=== PATIENT | female | born 1950 | race Caucasian/White ===

== ENCOUNTER → 2016-10-13 | Outpatient (REF) | payer OTHER ==
[~2016-10-13] MED LIST: ASPI1TAB PO; CALC600T57 PO; CVS20TAB PO; LISI-542 PO; METF1000 PO; PROBCAP4 PO; TYLE1TAB5 PO; ZOCO20TA PO
== END ==
LOC: M LAB REF 18:01
PROVIDERS: ATTEND Physician Assistant Medical
DX: B34.9 Viral infection, unspecified (principal)

== ENCOUNTER → 2016-10-20 | Outpatient (REF) | payer OTHER ==
[2016-10-20 12:13] LABS: VITAMIN B12 LEVEL 1528 PG/ML
[2016-10-20 12:14] LABS: FOLATE 19.2 NG/ML
[2016-10-20 12:17] LABS: ALBUMIN 3.8 GM/DL (3.2-5.2); ALBUMIN/GLOBULIN RATIO 1.27 (1.00-1.93); ALKALINE PHOSPHATASE 87 U/L (45-117); ALT/SGPT 17 U/L (12-78); ANION GAP 8 MEQ/L (8-16); AST/SGOT 15 U/L (15-37); BILIRUBIN,TOTAL 0.4 MG/DL (0.2-1.0); BLOOD UREA NITROGEN 20 MG/DL (7-18); CALCIUM LEVEL 9.3 MG/DL (8.8-10.2); CARBON DIOXIDE LEVEL 26 MEQ/L (21-32); CHLORIDE LEVEL 105 MEQ/L (98-107); CREATININE FOR GFR 0.93 MG/DL (0.55-1.02); GLOMERULAR FILTRATION RATE > 60.0 (>45); GLUCOSE, FASTING 165 MG/DL (80-110); POTASSIUM SERUM 4.2 MEQ/L (3.5-5.1); SODIUM LEVEL 139 MEQ/L (136-145); TOTAL PROTEIN 6.8 GM/DL (6.4-8.2)
== END ==
LOC: M LABDRAW1 11:05
PROVIDERS: ATTEND Physician Assistant
DX: I10 Essential (primary) hypertension (principal); E53.8 Deficiency of other specified B group vitamins; E11.9 Type 2 diabetes mellitus without complications

== ENCOUNTER 2017-02-25 11:46 | Emergency (ER) | payer OTHER ==
[~2017-02-25] VITALS: Ht 162.6 cm; Wt 87.0 kg
[~2017-02-25 11:46] MED LIST changes: -METF1000 PO; +METF10004 PO
[2017-02-25] MEDS ORDERED: JANU100T PO (12:11)
[2017-02-25] MEDS ORDERED: ONDANSETRON 4MG/2ML VIAL (J2405) IV ONE (13:45)
[2017-02-25] MEDS ORDERED: NS 500 ML IV ONE (13:45)
[2017-02-25] MEDS ORDERED: MORPHINE 4 MG/ML 1ML SYRINGE IV ONE (13:45)
--- NOTE | 2017-02-25 14:20 | REP ---
Clinical: Right upper quadrant pain with nausea. Technique: Real time celis scale ultrasound examination using curved array transducer. Findings: The gallbladder is distended and demonstrates layering sludge as well as 8 mm gallstone at the neck of the gallbladder. No significant wall thickening or pericholecystic fluid is appreciated. Diffuse abdominal pain is noted with transducer pressure. Biliary ductal dilatation is appreciated and the common bile duct measuring 11 mm diameter. Liver and pancreas are normal in contour, size, echogenicity without focal hepatic or pancreatic lesion identified. The right kidney is normal in reniform shape without hydronephrosis and measures 9.2 x 5.7 x 4.6 cm. No ascites. Impression: Distended gallbladder with layering sludge and 8 mm stone at the neck along with CBD dilatation to 11 mm and diffuse abdominal pain. Findings are equivocal and include early acute cholecystitis and biliary colic. Signed by Ismael Bradley MD 02/25/2017 02:12 P
[2017-02-25 14:47] LABS: BASO # 0.1 K/mm3 (0.0-0.2); BASO % 0.7 % (0.0-1.0); EOS # 0.2 K/mm3 (0.0-0.50); EOS % 1.6 % (0.0-3.0); LARGE UNSTAINED CELL # 0.2 K/mm3 (0.0-0.4); LARGE UNSTAINED CELL % 1.5 % (0.0-4.0); LYMPH # 1.9 K/mm3 (1.5-4.5); LYMPH % 17.2 % (24.0-44.0); MEAN CORPUSCULAR HEMOGLOBIN 29.8 pg (27.0-33.0); MEAN CORPUSCULAR HGB CONC 32.8 g/dl (32.0-36.5); MONO # 0.5 K/mm3 (0.0-0.8); MONO % 4.2 % (0.0-5.0); NEUTROPHILS # 8.3 K/mm3 (1.8-7.7); NEUTROPHILS % 74.7 % (36.0-66.0); PLATELET COUNT, AUTOMATED 387 k/mm3 (150-450); RED CELL DISTRIBUTION WIDTH 12.3 % (11.5-14.5); WHITE BLOOD COUNT 11.1 K/mm3 (4.0-10.0)
[2017-02-25 14:48] LABS: ALBUMIN 3.7 GM/DL (3.2-5.2); ALBUMIN/GLOBULIN RATIO 0.84 (1.00-1.93); ALKALINE PHOSPHATASE 85 U/L (45-117); ALT/SGPT 35 U/L (12-78); AMYLASE 23 U/L (25-115); ANION GAP 7 MEQ/L (8-16); AST/SGOT 66 U/L (15-37); BILIRUBIN,DIRECT 0.3 MG/DL (0.0-0.2); BILIRUBIN,TOTAL 0.6 MG/DL (0.2-1.0); BLOOD UREA NITROGEN 20 MG/DL (7-18); CARBON DIOXIDE LEVEL 28 MEQ/L (21-32); CHLORIDE LEVEL 102 MEQ/L (98-107); CREATININE FOR GFR 0.98 MG/DL (0.55-1.02); GLOMERULAR FILTRATION RATE > 60.0 (>45); GLUCOSE, FASTING 164 MG/DL (80-110); POTASSIUM SERUM 4.3 MEQ/L (3.5-5.1); SODIUM LEVEL 137 MEQ/L (136-145); TOTAL PROTEIN 8.1 GM/DL (6.4-8.2)
[2017-02-25] MEDS ORDERED: ZOFR4TAB3 PO (16:09)
[2017-02-25] MEDS ORDERED: NORCOTAB PO ×2 (16:09→17:11)
[2017-02-25 16:22] VITALS: BP 143/60
[2017-04-19] MEDS ORDERED: D3 22000 PO (08:07)
[2017-04-19] MEDS ORDERED: LISI10TA4 PO (08:07)
[2017-04-19] MEDS ORDERED: FISH100049 PO (08:07)
== END 2017-02-25 16:29 | disposition home or self-care (01) ==
LOC: M ED 11:46
DX: K80.70 Calculus of gallbladder and bile duct without cholecystitis without obstruction (principal); R11.2 Nausea with vomiting, unspecified; R10.11 Right upper quadrant pain; E11.9 Type 2 diabetes mellitus without complications; I10 Essential (primary) hypertension; M31.4 Aortic arch syndrome [Takayasu]; Z90.79 Acquired absence of other genital organ(s); Z79.82 Long term (current) use of aspirin
CPT/HCPCS: 76705; 80048; 80076; 82150; 83690; 85025; 86140; 96361; 96374; 96375; 99283; J2405

== ENCOUNTER 2017-04-27 11:39 | Day surgery (SDC) | payer OTHER ==
[~2017-04-27] VITALS: Ht 162.6 cm; Wt 78.9 kg
[~2017-04-27 11:39] MED LIST changes: +D3 22000 PO; +FISH100049 PO; +JANU100T PO; +LISI10TA4 PO; +NORCOTAB PO; +ZOFR4TAB3 PO
[2017-04-27] MEDS ORDERED: LIDOCAINE 1% SDV 5 ML VIAL SC ONE (11:45)
[2017-04-27] MEDS ORDERED: LR 1,000 ML IV SCH ×3 (11:45→16:45)
[2017-04-27] MEDS ORDERED: LIDOCAINE 2% INJ 100 MG/5 ML SDV (FOR ANES.) As Ordered ONE (12:54)
[2017-04-27] MEDS ORDERED: dexameTHASONE 4 MG/ML 1ML VIAL (J1100) As Ordered ONE (12:54)
[2017-04-27] MEDS ORDERED: KETOROLAC 60 MG/2 ML VIAL (J1885) As Ordered ONE (12:54)
[2017-04-27] MEDS ORDERED: ROCURONIUM BROMIDE 50 MG/5 ML VIAL/SYRINGE As Ordered ONE ×2 (12:54→12:56)
[2017-04-27] MEDS ORDERED: ONDANSETRON 4MG/2ML VIAL (J2405) As Ordered ONE (12:54)
[2017-04-27] MEDS ORDERED: PROPOFOL 200 MG/20 ML VIAL As Ordered ONE (12:54)
[2017-04-27] MEDS ORDERED: MIDAZOLAM INJ 2 MG/2 ML VIAL (J2250) As Ordered ONE (12:55)
[2017-04-27] MEDS ORDERED: fentaNYL 100 MCG/2 ML INJECTION (J3010) As Ordered ONE (12:55)
[2017-04-27] MEDS ORDERED: BUPIVACAINE HCL 0.25% 30 ML VIAL As Ordered ONE ×2 (13:17→14:15)
[2017-04-27] MEDS ORDERED: GLYCOPYRROLATE INJ 0.2 MG/ML 2 ML VIAL As Ordered ONE (15:22)
[2017-04-27] MEDS ORDERED: NEOSTIGMINE 1MG/ML 5 ML SYRINGE (J2710) As Ordered ONE (15:22)
[2017-04-27] MEDS ORDERED: HYDROmorphone HCL 2 MG/ML 1ML VIAL (J1170) As Ordered ONE (15:55)
[2017-04-27] MEDS ORDERED: ACETAMINOPHEN TAB 650MG DOSE (2X325MG) PO PRN (16:45)
[2017-04-27] MEDS ORDERED: NORCO, ANEXSIA 5/325MG TABLET (HYDROcodone/ACETAMINOPHEN) PO PRN (16:45)
[2017-04-27] MEDS ORDERED: fentaNYL 100 MCG/2 ML INJECTION (J3010) IV PRN (16:45)
[2017-04-27] MEDS ORDERED: PERCOCET 5MG/325MG TAB PO PRN (16:45)
[2017-04-27] MEDS ORDERED: METOCLOPRAMIDE INJ 10MG/2ML VIAL (J2765) IV PRN (16:45)
[2017-04-27] MEDS ORDERED: ONDANSETRON 4MG/2ML VIAL (J2405) IV PRN (16:45)
[2017-04-27 19:00] VITALS: BP 106/50
--- NOTE | 2017-04-27 21:22 | ECGEPIP ---
Stationary ECG Study [facility] Test Date: 2017-04-27 Pat Name: MALCOLM HARRISON Department: Room: - Gender: F Conservation Worker: : 1950 Requested By: Fernando Meyer Order Number: [id number] Reading MD: Octavio March Measurements Intervals [place] Rate: 61 P: 33 NH: 150 QRS: -20 QRSD: 90 T: 18 QT: 404 QTc: 407 Interpretive Statements Normal sinus rhythm Low QRS complex voltage in the precordial leads Comparison tracing not on file Electronically Signed On 04-27-2017 21:22:23 EDT by Octavio March
--- NOTE | 2017-04-28 17:58 | RO ---
DATE OF PROCEDURE: 04/27/2017 PREOPERATIVE DIAGNOSIS: Symptomatic gallstones. POSTOPERATIVE DIAGNOSIS: Symptomatic gallstones and intra-abdominal adhesions. PROCEDURE PERFORMED: Laparoscopic cholecystectomy with lysis of adhesions. SURGEON: Dr. Herrera ANESTHESIA: General. INDICATIONS FOR PROCEDURE: The patient is a 66-year-old woman with a history of upper abdominal discomfort. Gallbladder ultrasound confirmed cholelithiasis and she is now for a laparoscopic cholecystectomy. OPERATIVE PROCEDURE: The patient was placed under general endotracheal anesthesia. The patient's abdomen was prepped and draped in a sterile fashion. 0.25% Marcaine was infiltrated at each of the trocar sites. A short supraumbilical midline incision was made and deepened through the fascia under direct vision. The peritoneum was opened bluntly and a Gomez cannula was inserted. The abdomen was insufflated with carbon dioxide gas and a laparoscopic was placed. Initial examination showed some significant adhesions along the right side of the abdomen with the ascending colon in the area of the hepatic flexure having adhesions up to the anterior abdominal wall. Some of the omentum was also adherent in this area. It was possible to see the medial aspect of the gallbladder and the gallbladder was found to be distended with some adhesions also to the fundus and body of the gallbladder. The liver itself appeared normal. There were no other significant abnormalities identified. A 5 mm trocar was placed in the left upper quadrant and then using cauterizing asia, the adhesions in the area anterior and just inferior to the level of the gallbladder were divided to create an area for placement of additional trocars. Once this area had been adequately cleared, two 5 mm trocars were placed in the right upper quadrant. The patient was tilted to a reverse Trendelenburg position and rolled to the left. Initially the gallbladder was aspirated with an aspirating needle. Approximately 150 mL of bile was aspirated and the gallbladder was not completely emptied. The gallbladder was then grasped and elevated. Adhesions of the omentum to the gallbladder were lysed using the hook cautery. Dissection was carried down to the gallbladder neck. The neck was dissected medially and laterally. The cholecystic artery was identified and dissected free and this was doubly clipped with hemoclips and divided. With further dissection the cystic duct was clearly identified and this was also doubly clipped with hemoclips and divided. The gallbladder was then dissected free from the gallbladder bed using cautery. The gallbladder was not perforated in the course of dissection. The gallbladder was placed in an Endopouch. The right upper quadrant was irrigated and inspected. There was no evidence of bleeding or bile leak. The patient was returned to a flat position. The abdomen was deflated and the trocars were removed. The gallbladder was recovered through the Gomez site. Several small stones were palpable within the gallbladder. This was sent for permanent pathology. The fascia at the Gomez site was closed with interrupted simple sutures of 2-0 Vicryl. The skin incisions were all closed with buried 5-0 Vicryl and Steri-Strips. Light dressings were applied. The patient tolerated the procedure well without apparent complication. She was awakened in the operating room, extubated and moved to the recovery room in stable condition. RONEN
== END 2017-04-27 19:06 | disposition home or self-care (01) ==
LOC: M SDC 11:39
PROVIDERS: ATTEND Surgery
DX: K80.10 Calculus of gallbladder with chronic cholecystitis without obstruction (principal); K66.0 Peritoneal adhesions (postprocedural) (postinfection); E78.00 Pure hypercholesterolemia, unspecified; I10 Essential (primary) hypertension; E11.9 Type 2 diabetes mellitus without complications; M31.4 Aortic arch syndrome [Takayasu]; M17.0 Bilateral primary osteoarthritis of knee; M19.049 Primary osteoarthritis, unspecified hand; J30.2 Other seasonal allergic rhinitis; Z87.891 Personal history of nicotine dependence; Z88.5 Allergy status to narcotic agent; Z91.041 Radiographic dye allergy status; Z88.8 Allergy status to other drugs, medicaments and biological substances; Z79.899 Other long term (current) drug therapy; Z79.82 Long term (current) use of aspirin; Z79.84 Long term (current) use of oral hypoglycemic drugs
CPT/HCPCS: 47562; 88304; 93005; J1170; J2250; J2405; J2710; J3010

== ENCOUNTER → 2017-05-04 | Outpatient (REF) | payer OTHER ==
[2017-05-04 12:47] LABS: MEAN CORPUSCULAR HEMOGLOBIN 29.3 pg (27.0-33.0); MEAN CORPUSCULAR HGB CONC 32.8 g/dl (32.0-36.5); MEAN CORPUSCULAR VOLUME 89.1 fl (80.0-96.0); RED CELL DISTRIBUTION WIDTH 12.8 % (11.5-14.5); WHITE BLOOD COUNT 6.1 K/mm3 (4.0-10.0)
[2017-05-04 12:48] LABS: ALBUMIN 3.5 GM/DL (3.2-5.2); ALKALINE PHOSPHATASE 68 U/L (45-117); ALT/SGPT 19 U/L (12-78); ANION GAP 8 MEQ/L (8-16); AST/SGOT 12 U/L (15-37); BILIRUBIN,TOTAL 0.4 MG/DL (0.2-1.0); BLOOD UREA NITROGEN 20 MG/DL (7-18); CALCIUM LEVEL 9.8 MG/DL (8.8-10.2); CARBON DIOXIDE LEVEL 32 MEQ/L (21-32); CHLORIDE LEVEL 101 MEQ/L (98-107); CREATININE FOR GFR 0.88 MG/DL (0.55-1.02); GLOMERULAR FILTRATION RATE > 60.0 (>45); GLUCOSE, FASTING 115 MG/DL (80-110); POTASSIUM SERUM 4.3 MEQ/L (3.5-5.1); SODIUM LEVEL 141 MEQ/L (136-145)
== END ==
LOC: M LABDRAW1 11:38
PROVIDERS: ATTEND Physician Assistant
DX: E11.9 Type 2 diabetes mellitus without complications (principal); I10 Essential (primary) hypertension

== ENCOUNTER → 2017-11-02 | Outpatient (REF) | payer OTHER ==
[2017-11-02 12:40] LABS: HEMATOCRIT 41.3 % (36.0-47.0); HEMOGLOBIN 12.8 g/dl (12.0-16.0); MEAN CORPUSCULAR HEMOGLOBIN 27.6 pg (27.0-33.0); MEAN CORPUSCULAR VOLUME 89.2 fl (80.0-96.0); PLATELET COUNT, AUTOMATED 443 10^3/uL (150-450); RED BLOOD COUNT 4.63 10^6/uL (4.00-5.40); RED CELL DISTRIBUTION WIDTH 13.2 % (11.5-14.5); WHITE BLOOD COUNT 8.4 10^3/uL (4.0-10.0)
[2017-11-02 13:07] LABS: ALBUMIN 3.7 GM/DL (3.2-5.2); ALBUMIN/GLOBULIN RATIO 1.03 (1.00-1.93); ALKALINE PHOSPHATASE 80 U/L (45-117); ALT/SGPT 16 U/L (12-78); ANION GAP 7 MEQ/L (8-16); AST/SGOT 12 U/L (7-37); BILIRUBIN,TOTAL 0.3 MG/DL (0.2-1.0); BLOOD UREA NITROGEN 17 MG/DL (7-18); CALCIUM LEVEL 9.3 MG/DL (8.8-10.2); CARBON DIOXIDE LEVEL 30 MEQ/L (21-32); CHLORIDE LEVEL 104 MEQ/L (98-107); CREATININE FOR GFR 0.86 MG/DL (0.55-1.30); FREE T4 0.87 NG/DL (0.76-1.46); GLOMERULAR FILTRATION RATE > 60.0 (>45); GLUCOSE, FASTING 118 MG/DL (70-100); SODIUM LEVEL 141 MEQ/L (136-145); TOTAL PROTEIN 7.3 GM/DL (6.4-8.2)
[2017-11-02 13:10] LABS: POTASSIUM SERUM 5.2 MEQ/L (3.5-5.1)
[2017-11-02 13:24] LABS: FOLATE 9.5 NG/ML; VITAMIN B12 LEVEL 290 PG/ML
[2017-11-02 13:28] LABS: CREATININE, URINE 77.3 MG/DL; MAU/CREAT RATIO 7.7 MCG/MG (0.0-30.0)
[2017-11-02 13:46] LABS: ESTIMATED AVERAGE GLUCOSE 157 MG/DL (60-110); HEMOGLOBIN A1c 7.1 %
== END ==
LOC: M SFHCADAM 09:04
DX: E11.9 Type 2 diabetes mellitus without complications (principal); I70.1 Atherosclerosis of renal artery; E53.8 Deficiency of other specified B group vitamins

== ENCOUNTER → 2018-05-07 | Outpatient (REF) | payer MEDICARE, OTHER ==
[2018-05-07 15:13] LABS: MALB URINE SIEMENS 12.9 MG/L; MAU/CREAT RATIO 5.6 MCG/MG (0.0-30.0)
[2018-05-07 15:36] LABS: ALBUMIN 3.6 GM/DL (3.2-5.2); ALBUMIN/GLOBULIN RATIO 1.16 (1.00-1.93); ALKALINE PHOSPHATASE 68 U/L (45-117); ALT/SGPT 19 U/L (12-78); ANION GAP 11 MEQ/L (8-16); AST/SGOT 16 U/L (7-37); BILIRUBIN,TOTAL 0.3 MG/DL (0.2-1.0); BLOOD UREA NITROGEN 28 MG/DL (7-18); CALCIUM LEVEL 9.1 MG/DL (8.8-10.2); CARBON DIOXIDE LEVEL 27 MEQ/L (21-32); CHLORIDE LEVEL 106 MEQ/L (98-107); CHOLESTEROL LEVEL 137 MG/DL (<200); CREATININE FOR GFR 0.98 MG/DL (0.55-1.30); GLOMERULAR FILTRATION RATE > 60.0 (>45); GLUCOSE, FASTING 122 MG/DL (70-100); HDL CHOLESTEROL 55 MG/DL (>40); LDL CHOLESTEROL 52 MG/DL (<100); NON-HDL-C 82 MG/DL; POTASSIUM SERUM 4.5 MEQ/L (3.5-5.1); SODIUM LEVEL 144 MEQ/L (136-145); TOTAL 25(OH) VITAMIN D 61.3 NG/ML (30.0-100.0); TOTAL PROTEIN 6.7 GM/DL (6.4-8.2); TRIGLYCERIDES LEVEL 151 MG/DL (<150)
[2018-05-07 16:04] LABS: ESTIMATED AVERAGE GLUCOSE 146 MG/DL (60-110); HEMOGLOBIN A1c 6.7 %
== END ==
LOC: M LABDRAW1 07:48
DX: E11.9 Type 2 diabetes mellitus without complications (principal); I70.1 Atherosclerosis of renal artery; E55.9 Vitamin D deficiency, unspecified
CPT/HCPCS: 80053

== ENCOUNTER → 2018-06-15 | Outpatient (REF) | payer MEDICARE, OTHER | LOC: M LAB REF 13:37 | DX: R19.7 Diarrhea, unspecified (principal) | CPT/HCPCS: 87177 ==

== ENCOUNTER 2018-06-28 06:25 | Day surgery (SDC) | payer MEDICARE, OTHER ==
[2018-06-28] MEDS: NS 1,000 ML IV (07:05)
[2018-06-28] MEDS ORDERED: PROPOFOL 200 MG/20 ML VIAL As Ordered ×2 (07:10→07:48)
[2018-06-28] MEDS ORDERED: LIDOCAINE 2% INJ 100 MG/5 ML SDV (FOR ANES.) As Ordered (07:12)
== END 2018-06-28 08:58 | disposition home or self-care (01) ==
LOC: M OPP 06:25
DX: K57.30 Diverticulosis of large intestine without perforation or abscess without bleeding (principal); K64.9 Unspecified hemorrhoids; I10 Essential (primary) hypertension; E78.5 Hyperlipidemia, unspecified; E11.9 Type 2 diabetes mellitus without complications; M12.9 Arthropathy, unspecified; Z88.5 Allergy status to narcotic agent; Z88.8 Allergy status to other drugs, medicaments and biological substances; Z79.82 Long term (current) use of aspirin; Z79.84 Long term (current) use of oral hypoglycemic drugs; Z79.899 Other long term (current) drug therapy
CPT/HCPCS: 45380

== ENCOUNTER → 2018-07-11 | Outpatient (CLI) | payer MEDICARE, OTHER | LOC: M RAD 10:37 | DX: I70.213 Atherosclerosis of native arteries of extremities with intermittent claudication, bilateral legs (principal) | CPT/HCPCS: 93925 ==

== ENCOUNTER → 2019-04-08 | Outpatient (REF) | payer MEDICARE, OTHER ==
[~2019-04-08] MED LIST changes: -ASPI1TAB PO; +ASPI81TA26 PO; -CVS20TAB PO; +HYDR-3715 PO; +MELA5TAB21 PO; -NORCOTAB PO; +OMEP20TA9 PO; +VITA100018 PO; +VITA250L PO; +VITAE20CA PO; +ZOFR4TAB14 PO; -ZOFR4TAB3 PO
[2019-04-08 14:33] LABS: HEMATOCRIT 38.8 % (36.0-47.0); HEMOGLOBIN 12.4 g/dl (12.0-15.5); MEAN CORPUSCULAR HEMOGLOBIN 29.5 pg (27.0-33.0); MEAN CORPUSCULAR VOLUME 92.4 fl (80.0-96.0); PLATELET COUNT, AUTOMATED 360 10^3/uL (150-450); WHITE BLOOD COUNT 8.2 10^3/uL (4.0-10.0)
[2019-04-08 14:40] LABS: ALBUMIN 3.4 GM/DL (3.2-5.2); BILIRUBIN,TOTAL 0.1 MG/DL (0.2-1.0); CALCIUM LEVEL 9.4 MG/DL (8.8-10.2); CHOLESTEROL RISK RATIO 2.913 (<5); CREATININE FOR GFR 1.08 MG/DL (0.55-1.30); POTASSIUM SERUM 4.5 MEQ/L (3.5-5.1); TOTAL PROTEIN 6.6 GM/DL (6.4-8.2)
[2019-04-08 14:53] LABS: HEMOGLOBIN A1c 8.1 %
== END ==
LOC: M LABDRAW1 13:50
PROVIDERS: ATTEND Family Medicine
DX: K52.831 Collagenous colitis (principal); E78.2 Mixed hyperlipidemia; E13.9 Other specified diabetes mellitus without complications

== ENCOUNTER → 2019-05-01 | Outpatient (CLI) | payer MEDICARE, OTHER ==
--- NOTE | 2019-05-01 14:28 | REP ---
BILATERAL MAMMOGRAM WITH 3D TOMOSYNTHESIS: There is no family history of breast cancer. Tyrer-Cuzick lifetime risk of breast cancer 5.8%. MLO and CC views of bilateral breasts performed with 3D tomosynthesis. Comparison is made with prior studies most recent of which is 05/05/2015. Breast parenchyma is predominantly fatty replaced. No new mass or architectural distortion is seen. However, there are tiny calcifications clustered focally in the upper outer quadrant of the right breast. I would recommend magnification views to further evaluate. Benign appearing axillary lymph nodes are present bilaterally. IMPRESSION: BIRADS 0: BI-RADS/ACR category 0 mammogram, Incomplete: Need additional imaging evaluation and/or prior mammograms for comparison. ACR 0 incomplete. Tiny calcifications focally in the upper outer quadrant of the right breast. Recommend magnification views to further evaluate. This mammogram was interpreted with the aid of an FDA-approved computer-aided detection system. The patient states that she or he has not had a clinical breast exam in over a year. Patient letter being requested is M0.
== END ==
LOC: M WHC 10:58
PROVIDERS: ATTEND Family Medicine
DX: Z12.31 Encounter for screening mammogram for malignant neoplasm of breast (principal); R92.2 Inconclusive mammogram

== ENCOUNTER → 2019-05-24 | Outpatient (CLI) | payer MEDICARE, OTHER ==
--- NOTE | 2019-05-24 10:17 | REP ---
DIAGNOSTIC MAMMOGRAM RIGHT BREAST: Multiple magnification views of the right breast performed in the upper outer quadrant at the site of suspected microcalcifications on the mammogram of 05/01/2019. These magnification views confirm the presence of clustered pleomorphic microcalcifications in the upper outer quadrant of the right breast. These appear suspicious and stereotactic biopsy is recommended. IMPRESSION: BIRADS 4: BI-RADS/ACR category 4 mammogram. Suspicious Abnormality - biopsy should be considered. Clustered pleomorphic microcalcifications confirmed in the upper outer quadrant of the right breast. Stereotactic biopsy is recommended. The patient letter being requested is M4. Electronically Signed by Ricardo Johns MD 05/27/2019 02:47 P
== END ==
LOC: M RAD 09:18
PROVIDERS: ATTEND Family Medicine
DX: Z12.31 Encounter for screening mammogram for malignant neoplasm of breast (principal)

== ENCOUNTER → 2020-07-06 | Outpatient (REF) | payer MEDICARE, OTHER ==
[2020-07-06 13:41] LABS: BASO # 0.1 10^3/uL (0.0-0.2); BASO % 0.5 % (0.0-1.0); EOS # 0.2 10^3/uL (0.0-0.5); EOS % 1.7 % (0.0-3.0); HEMATOCRIT 41.4 % (36.0-47.0); HEMOGLOBIN 12.7 g/dl (12.0-15.5); LYMPH # 2.6 10^3/uL (1.5-5.0); LYMPH % 20.7 % (24.0-44.0); MEAN CORPUSCULAR HEMOGLOBIN 28.3 pg (27.0-33.0); MEAN CORPUSCULAR HGB CONC 30.7 g/dl (32.0-36.5); MEAN CORPUSCULAR VOLUME 92.4 fl (80.0-96.0); MONO % 7.8 % (0.0-5.0); NEUTROPHILS # 8.8 10^3/uL (1.5-8.5); NEUTROPHILS % 68.9 % (36.0-66.0); PLATELET COUNT, AUTOMATED 380 10^3/uL (150-450); RED BLOOD COUNT 4.48 10^6/uL (4.00-5.40); WHITE BLOOD COUNT 12.8 10^3/uL (4.0-10.0)
[2020-07-06 13:47] LABS: ALBUMIN 3.6 GM/DL (3.2-5.2); BILIRUBIN,TOTAL 0.4 MG/DL (0.2-1.0); CALCIUM LEVEL 9.6 MG/DL (8.8-10.2); CREATININE FOR GFR 1.08 MG/DL (0.55-1.30); GLOMERULAR FILTRATION RATE 53.9 (>45); POTASSIUM SERUM 4.5 MEQ/L (3.5-5.1); TOTAL PROTEIN 7.2 GM/DL (6.4-8.2)
[2020-07-06 14:41] LABS: HEMOGLOBIN A1c 6.8 %
== END ==
LOC: M SFHCADAM 09:43
PROVIDERS: ATTEND Family Medicine
DX: R10.30 Lower abdominal pain, unspecified (principal); E13.9 Other specified diabetes mellitus without complications
CPT/HCPCS: 80053; 81002; 83036; 85025; G0463

== ENCOUNTER → 2020-07-09 | Outpatient (CLI) | payer MEDICARE, OTHER ==
--- NOTE | 2020-07-09 18:13 | REP ---
INDICATION: R10.30 LOWER ABD PAIN ? STONES COMPARISON: 11/19/2015. TECHNIQUE: CT Scan of the abdomen and pelvis was performed without intravenous contrast. Sagittal and coronal reconstruction images performed. FINDINGS: Lung bases: Unremarkable. Liver: Grossly unremarkable. Gallbladder: Prior cholecystectomy. Spleen: Grossly unremarkable.. Adrenals: Normal. Pancreas: Grossly unremarkable.. Kidneys: No hydronephrosis or nephrolithiasis. Ureters demonstrate no dilatation or calculus. Small and large bowel: There is sigmoid diverticulosis. In the inferior pelvis there is mild stranding of the pericolonic fat which could indicate a mild degree of diverticulitis. Free fluid: None. Abdominal aorta: No aneurysm. Adenopathy: None. Appendix: Not inflamed. Osseous structures: There are degenerative changes of the spine without compression deformity. Pelvis: No mass. No bladder calculus seen. Prior hysterectomy. IMPRESSION: No urinary tract calculus. No hydroureteronephrosis. Sigmoid diverticulosis. There is mild pericolonic fat stranding in the inferior pelvis which may indicate mild diverticulitis. No free air or free fluid. <Electronically signed by Ricardo Johns > 07/09/20 [id number]
== END ==
LOC: M RAD 17:11
PROVIDERS: ATTEND Family Medicine
DX: R10.30 Lower abdominal pain, unspecified (principal)

== ENCOUNTER → 2020-09-28 | Outpatient (REF) | payer MEDICARE, OTHER ==
[~2020-09-28] MED LIST changes: -LISI-542 PO; +LISI-898 PO; +LISI10TA22 PO; -LISI10TA4 PO
[2020-09-28 13:21] LABS: ALBUMIN 3.4 GM/DL (3.2-5.2); BILIRUBIN,TOTAL 0.2 MG/DL (0.2-1.0); CALCIUM LEVEL 9.6 MG/DL (8.8-10.2); CHOLESTEROL RISK RATIO 2.929 (<5); CREATININE FOR GFR 1.14 MG/DL (0.55-1.30); FREE T4 0.86 NG/DL (0.76-1.46); GLOMERULAR FILTRATION RATE 50.6 (>45); POTASSIUM SERUM 4.6 MEQ/L (3.5-5.1); THYROID STIMULATING HORMONE 1.4 uIU/ML (0.358-3.740); TOTAL PROTEIN 6.6 GM/DL (6.4-8.2)
[2020-09-28 14:47] LABS: MAU/CREAT RATIO 5.9 MCG/MG (0.0-30.0)
[2020-09-28 17:04] LABS: HEMOGLOBIN A1c 6.9 %
== END ==
LOC: M PLALAB 08:18
PROVIDERS: ATTEND Family Medicine
DX: E13.9 Other specified diabetes mellitus without complications (principal); E78.2 Mixed hyperlipidemia; M31.4 Aortic arch syndrome [Takayasu]; I70.1 Atherosclerosis of renal artery

== ENCOUNTER → 2021-03-19 | Outpatient (CLI) | payer MEDICARE, OTHER ==
[~2021-03-19] MED LIST changes: +OMEP20TA2 PO; -OMEP20TA9 PO
--- NOTE | 2021-03-19 19:03 | REP ---
INDICATION: PAIN IN LEFT ANKLE AND JOINTS OF LEFT FOOT. COMPARISON: None. TECHNIQUE: AP, lateral, and bilateral oblique images of the left ankle were performed. FINDINGS: There are multiple old ununited avulsion fractures of the medial and lateral malleoli. There is no evidence of acute fracture or dislocation. There is no significant arthropathy of the mortise joint, the subtalar joint, the tibiotalar joint or the calcaneocuboid joint. There is a large plantar spur. There is a small posterior heel spur. The periarticular soft tissues are unremarkable. IMPRESSION: 1. No evidence of acute fracture or significant arthropathy. 2. Heel spurs. <Electronically signed by Dakota Downs > 03/19/21 [id number]
--- NOTE | 2021-03-20 14:37 | REP ---
INDICATION: PAIN IN LEFT ANKLE AND JOINTS OF LEFT FOOT. COMPARISON: None. TECHNIQUE: Four views of the left foot were obtained. FINDINGS: There is a moderate plantar spur. There is a small posterior heel spur. There is no evidence of fracture or dislocation. There are no significant joint space abnormalities. There are no soft tissue abnormalities. IMPRESSION: No evidence of fracture or significant arthropathy. Heel spurs. <Electronically signed by Dakota Downs > 03/20/21 [id number]
== END ==
LOC: M RAD 18:12
PROVIDERS: ATTEND Nurse Practitioner Family
DX: M25.572 Pain in left ankle and joints of left foot (principal); M77.32 Calcaneal spur, left foot

== ENCOUNTER → 2021-03-24 | Outpatient (CLI) | payer MEDICARE, OTHER ==
[2021-03-24 13:51] LABS: BASO # 0.1 10^3/uL (0.0-0.2); BASO % 0.7 % (0.0-1.0); EOS # 0.2 10^3/uL (0.0-0.5); EOS % 2.5 % (0.0-3.0); HEMATOCRIT 38.5 % (36.0-47.0); HEMOGLOBIN 12.2 g/dl (12.0-15.5); LYMPH % 22.6 % (24.0-44.0); MEAN CORPUSCULAR HEMOGLOBIN 29.1 pg (27.0-33.0); MEAN CORPUSCULAR HGB CONC 31.7 g/dl (32.0-36.5); MEAN CORPUSCULAR VOLUME 91.9 fl (80.0-96.0); MONO # 0.6 10^3/uL (0.0-0.8); MONO % 6.3 % (2.0-8.0); NEUTROPHILS % 67.6 % (36.0-66.0); PLATELET COUNT, AUTOMATED 370 10^3/uL (150-450); RED BLOOD COUNT 4.19 10^6/uL (4.00-5.40); WHITE BLOOD COUNT 8.8 10^3/uL (4.0-10.0)
[2021-03-24 14:20] LABS: RHEUMATOID FACTOR QUANT < 10.0 IU/ML (<15.0); URIC ACID 7.2 MG/DL (2.6-6.0)
[2021-03-25 17:07] LABS: ANTINUCLEAR ANTIBODIES DIRECT Negative (Negative); Lyme Disease IgG/IgM Antibodie <0.91 ISR (0.00-0.90); Lyme Disease IgM Ab Quantitati <0.80 index (0.00-0.79)
== END ==
LOC: M PLALAB 10:33
DX: S93.402A Sprain of unspecified ligament of left ankle, initial encounter (principal); W18.30XA Fall on same level, unspecified, initial encounter; Y92.009 Unspecified place in unspecified non-institutional (private) residence as the place of occurrence of the external cause

== ENCOUNTER → 2021-03-31 | Outpatient (CLI) | payer MEDICARE, OTHER ==
[2021-03-31 10:35] LABS: HEMATOCRIT 38.3 % (36.0-47.0); HEMOGLOBIN 12.4 g/dl (12.0-15.5); MEAN CORPUSCULAR HEMOGLOBIN 29.2 pg (27.0-33.0); MEAN CORPUSCULAR HGB CONC 32.4 g/dl (32.0-36.5); MEAN CORPUSCULAR VOLUME 90.3 fl (80.0-96.0); PLATELET COUNT, AUTOMATED 457 10^3/uL (150-450); RED BLOOD COUNT 4.24 10^6/uL (4.00-5.40); WHITE BLOOD COUNT 8.7 10^3/uL (4.0-10.0)
[2021-03-31 11:09] LABS: ALBUMIN 3.6 GM/DL (3.2-5.2); BILIRUBIN,TOTAL 0.2 MG/DL (0.2-1.0); CALCIUM LEVEL 9.5 MG/DL (8.8-10.2); CHOLESTEROL RISK RATIO 3.377 (<5); CREATININE FOR GFR 1.07 MG/DL (0.55-1.30); GLOMERULAR FILTRATION RATE 54.3 (>45); POTASSIUM SERUM 4.4 MEQ/L (3.5-5.1); TOTAL PROTEIN 6.8 GM/DL (6.4-8.2)
[2021-03-31 13:11] LABS: HEMOGLOBIN A1c 7.5 %
== END ==
LOC: M PLALAB 08:41
PROVIDERS: ATTEND Family Medicine
DX: M10.9 Gout, unspecified (principal); Z79.899 Other long term (current) drug therapy

== ENCOUNTER → 2021-05-05 | Outpatient (REF) | payer MEDICARE, OTHER ==
[2021-05-05 17:35] LABS: BASO # 0.1 10^3/uL (0.0-0.2); BASO % 1.6 % (0.0-1.0); EOS # 0.5 10^3/uL (0.0-0.5); EOS % 5.7 % (0.0-3.0); HEMATOCRIT 40.1 % (36.0-47.0); HEMOGLOBIN 12.6 g/dl (12.0-15.5); LYMPH # 3.1 10^3/uL (1.5-5.0); LYMPH % 36.4 % (24.0-44.0); MEAN CORPUSCULAR HEMOGLOBIN 28.3 pg (27.0-33.0); MEAN CORPUSCULAR HGB CONC 31.4 g/dl (32.0-36.5); MEAN CORPUSCULAR VOLUME 90.1 fl (80.0-96.0); MONO # 0.7 10^3/uL (0.0-0.8); MONO % 8.5 % (2.0-8.0); NEUTROPHILS # 4.1 10^3/uL (1.5-8.5); NEUTROPHILS % 47.4 % (36.0-66.0); PLATELET COUNT, AUTOMATED 567 10^3/uL (150-450); RED BLOOD COUNT 4.45 10^6/uL (4.00-5.40); WHITE BLOOD COUNT 8.6 10^3/uL (4.0-10.0)
[2021-05-05 17:50] LABS: ALBUMIN 3.5 GM/DL (3.2-5.2); BILIRUBIN,TOTAL 0.4 MG/DL (0.2-1.0); CALCIUM LEVEL 9.6 MG/DL (8.8-10.2); CREATININE FOR GFR 1.4 MG/DL (0.55-1.30); GLOMERULAR FILTRATION RATE 39.8 (>45); POTASSIUM SERUM 4.8 MEQ/L (3.5-5.1); TOTAL PROTEIN 7.5 GM/DL (6.4-8.2)
== END ==
LOC: M SFHCADAM 11:57
PROVIDERS: ATTEND Physician Assistant
DX: R11.2 Nausea with vomiting, unspecified (principal)
CPT/HCPCS: 80053; 82150; 83690; 85025; G0463

== ENCOUNTER → 2021-05-17 | Outpatient (CLI) | payer MEDICARE, OTHER ==
[2021-05-17 11:09] LABS: CALCIUM LEVEL 9.8 MG/DL (8.8-10.2); CREATININE FOR GFR 1.19 MG/DL (0.55-1.30); POTASSIUM SERUM 4.5 MEQ/L (3.5-5.1)
== END ==
LOC: M PLALAB 08:38
PROVIDERS: ATTEND Physician Assistant
DX: N17.9 Acute kidney failure, unspecified (principal)

== ENCOUNTER → 2021-06-25 | Outpatient (REF) | payer MEDICARE, OTHER ==
[2021-06-25 13:14] LABS: CALCIUM LEVEL 10.4 MG/DL (8.8-10.2); CREATININE FOR GFR 1.16 MG/DL (0.55-1.30); GLOMERULAR FILTRATION RATE 49.5 (>45); POTASSIUM SERUM 5.1 MEQ/L (3.5-5.1); URIC ACID 6.4 MG/DL (2.6-6.0)
[2021-06-25 13:37] LABS: HEMOGLOBIN A1c 6.9 %
== END ==
LOC: M SFHCADAM 07:57
PROVIDERS: ATTEND Physician Assistant
DX: M1A.0710 Idiopathic chronic gout, right ankle and foot, without tophus (tophi) (principal); E11.9 Type 2 diabetes mellitus without complications
CPT/HCPCS: 80048; 83036; 84550; G0463

== ENCOUNTER 2021-09-29 12:16 | Emergency (ER) | payer MEDICARE, OTHER ==
[~2021-09-29] VITALS: Ht 162.6 cm; Wt 87.4 kg
[~2021-09-29 12:16] MED LIST changes: -LISI-898 PO; +LISI5TAB11 PO
[2021-09-29] MEDS ORDERED: COLC0.6T47 (12:28)
[2021-09-29] MEDS ORDERED: ALLO100T (12:28)
[2021-09-29 14:12] LABS: BASO # 0.1 10^3/uL (0.0-0.2); BASO % 0.6 % (0.0-1.0); EOS # 0.1 10^3/uL (0.0-0.5); EOS % 1.8 % (0.0-3.0); HEMATOCRIT 42.2 % (36.0-47.0); HEMOGLOBIN 13.4 g/dl (12.0-15.5); LYMPH # 2.7 10^3/uL (1.5-5.0); LYMPH % 34.6 % (24.0-44.0); MEAN CORPUSCULAR HEMOGLOBIN 29.2 pg (27.0-33.0); MEAN CORPUSCULAR HGB CONC 31.8 g/dl (32.0-36.5); MEAN CORPUSCULAR VOLUME 91.9 fl (80.0-96.0); MONO # 0.6 10^3/uL (0.0-0.8); MONO % 7.5 % (2.0-8.0); NEUTROPHILS # 4.3 10^3/uL (1.5-8.5); NEUTROPHILS % 55.2 % (36.0-66.0); PLATELET COUNT, AUTOMATED 310 10^3/uL (150-450); RED BLOOD COUNT 4.59 10^6/uL (4.00-5.40); WHITE BLOOD COUNT 7.7 10^3/uL (4.0-10.0)
[2021-09-29 14:53] LABS: ALBUMIN 3.8 GM/DL (3.2-5.2); ALT/SGPT 23 U/L (12-78); BILIRUBIN,DIRECT < 0.1 MG/DL (0.0-0.2); BILIRUBIN,TOTAL 0.4 MG/DL (0.2-1.0); BLOOD UREA NITROGEN 19 MG/DL (7-18); CALCIUM LEVEL 10.1 MG/DL (8.8-10.2); CARBON DIOXIDE LEVEL 27 MEQ/L (21-32); CHLORIDE LEVEL 107 MEQ/L (98-107); CREATININE FOR GFR 1.17 MG/DL (0.55-1.30); GLUCOSE, FASTING 138 MG/DL (70-100); POTASSIUM SERUM 5.1 MEQ/L (3.5-5.1); SODIUM LEVEL 141 MEQ/L (136-145); TOTAL PROTEIN 7.3 GM/DL (6.4-8.2)
[2021-09-29] MEDS ORDERED: diazePAM 10MG/2ML SYRINGE (J3360 PER 5MG) IV ONE (16:20)
[2021-09-29] MEDS ORDERED: MECL1TAB31 PO (20:37)
[2021-09-29] MEDS ORDERED: vestibular PT (20:39)
[2021-09-29 21:27] VITALS: BP 124/81
== END 2021-09-29 21:30 | disposition home or self-care (01) ==
LOC: M ED 12:16
DX: H81.10 Benign paroxysmal vertigo, unspecified ear (principal); E78.5 Hyperlipidemia, unspecified; E11.9 Type 2 diabetes mellitus without complications; I10 Essential (primary) hypertension; Z88.6 Allergy status to analgesic agent; Z88.8 Allergy status to other drugs, medicaments and biological substances
CPT/HCPCS: 70450; 70544; 70551; 80048; 80076; 84443; 85025; 93005; 93041; 94760; 96374; 97112; 97161; 99285; J3360

== ENCOUNTER → 2021-10-06 | Outpatient (CLI) | payer MEDICARE, OTHER ==
[~2021-10-06] MED LIST changes: +ALLO100T; +COLC0.6T47; +MECL1TAB31 PO; +vestibular PT
[2021-10-06 10:28] LABS: HEMATOCRIT 40.3 % (36.0-47.0); HEMOGLOBIN 12.8 g/dl (12.0-15.5); MEAN CORPUSCULAR HEMOGLOBIN 29.3 pg (27.0-33.0); MEAN CORPUSCULAR HGB CONC 31.8 g/dl (32.0-36.5); MEAN CORPUSCULAR VOLUME 92.2 fl (80.0-96.0); PLATELET COUNT, AUTOMATED 360 10^3/uL (150-450); RED BLOOD COUNT 4.37 10^6/uL (4.00-5.40); WHITE BLOOD COUNT 7.7 10^3/uL (4.0-10.0)
[2021-10-06 10:56] LABS: ALBUMIN 3.5 GM/DL (3.2-5.2); BILIRUBIN,TOTAL 0.3 MG/DL (0.2-1.0); CALCIUM LEVEL 9.5 MG/DL (8.8-10.2); CREATININE FOR GFR 1.02 MG/DL (0.55-1.30); FREE T4 0.88 NG/DL (0.76-1.46); GLOMERULAR FILTRATION RATE 57.4 (>45); POTASSIUM SERUM 4.4 MEQ/L (3.5-5.1); THYROID STIMULATING HORMONE 2.05 uIU/ML (0.358-3.740); TOTAL PROTEIN 6.7 GM/DL (6.4-8.2); URIC ACID 5.6 MG/DL (2.6-6.0)
[2021-10-06 11:08] LABS: HEMOGLOBIN A1c 7.6 %
== END ==
LOC: M PLALAB 08:08
PROVIDERS: ATTEND Family Medicine
DX: E11.9 Type 2 diabetes mellitus without complications (principal)

== ENCOUNTER → 2022-03-30 | Outpatient (CLI) | payer MEDICARE, OTHER ==
[~2022-03-30] MED LIST changes: +SIMV-253 PO; -ZOCO20TA PO
[2022-03-30 14:13] LABS: HEMATOCRIT 42.9 % (36.0-47.0); HEMOGLOBIN 13.8 g/dl (12.0-15.5); MEAN CORPUSCULAR HEMOGLOBIN 29.7 pg (27.0-33.0); MEAN CORPUSCULAR HGB CONC 32.2 g/dl (32.0-36.5); MEAN CORPUSCULAR VOLUME 92.5 fl (80.0-96.0); PLATELET COUNT, AUTOMATED 306 10^3/uL (150-450); RED BLOOD COUNT 4.64 10^6/uL (4.00-5.40); WHITE BLOOD COUNT 7.4 10^3/uL (4.0-10.0)
[2022-03-30 17:06] LABS: HEMOGLOBIN A1c 7.3 %
[2022-03-30 20:43] LABS: ALBUMIN 3.6 GM/DL (3.2-5.2); BILIRUBIN,TOTAL 0.5 MG/DL (0.2-1.0); CALCIUM LEVEL 9.5 MG/DL (8.8-10.2); CHOLESTEROL RISK RATIO 3.549 (<5); CREATININE FOR GFR 1.1 MG/DL (0.55-1.30); FOLATE 15.5 NG/ML (>5.4); FREE T4 0.91 NG/DL (0.76-1.46); GLOMERULAR FILTRATION RATE 52.4 (>45); POTASSIUM SERUM 5.5 MEQ/L (3.5-5.1); THYROID STIMULATING HORMONE 1.56 uIU/ML (0.358-3.740); TOTAL PROTEIN 7.3 GM/DL (6.4-8.2)
== END ==
LOC: M PLAIMG 09:02
PROVIDERS: ATTEND Family Medicine
DX: R41.3 Other amnesia (principal); I10 Essential (primary) hypertension; I70.1 Atherosclerosis of renal artery; E78.2 Mixed hyperlipidemia; E13.9 Other specified diabetes mellitus without complications

== ENCOUNTER → 2022-08-24 | Outpatient (REF) | payer MEDICARE, OTHER ==
[2022-08-24 18:44] LABS: CALCIUM LEVEL 9.5 MG/DL (8.3-10.6); CREATININE FOR GFR 1.05 MG/DL (0.55-1.30); GLOMERULAR FILTRATION RATE 55.3 (>45); POTASSIUM SERUM 5.4 MMOL/L (3.5-5.1)
[2022-08-24 19:46] LABS: HEMOGLOBIN A1c 6.1 % (4.0-6.0)
== END ==
LOC: M SFHCADAM 13:57
PROVIDERS: ATTEND Family Medicine
DX: E13.9 Other specified diabetes mellitus without complications (principal)

== ENCOUNTER → 2022-12-02 | Outpatient (CLI) | payer MEDICARE, OTHER ==
[2022-12-02 11:25] LABS: CALCIUM LEVEL 9.5 MG/DL (8.3-10.6); CREATININE FOR GFR 1.15 MG/DL (0.55-1.30); GLOMERULAR FILTRATION RATE 49.8 (>45); POTASSIUM SERUM 4.9 MMOL/L (3.5-5.1)
== END ==
LOC: M PLALAB 08:15
PROVIDERS: ATTEND Family Medicine
DX: E11.9 Type 2 diabetes mellitus without complications (principal)

== ENCOUNTER → 2022-12-08 | Outpatient (REF) | payer MEDICARE, OTHER ==
[2022-12-08 13:25] LABS: C REACTIVE PROTEIN QUANTITATIV < 0.40 MG/DL (<1.0)
[2022-12-08 13:26] LABS: COMPLEMENT C3 172.3 MG/DL (90.0-170.0); COMPLEMENT C4 63.4 MG/DL (12-36)
[2022-12-08 13:30] LABS: APPEARANCE, URINE CLEAR (CLEAR); BACTERIA, URINE AUTO NEGATIVE (NEGATIVE); BILIRUBIN, URINE AUTO NEGATIVE (NEGATIVE); BLOOD, URINE BLOOD NEGATIVE (NEGATIVE); COLOR, URINE YELLOW (YELLOW); GLUCOSE, URINE (UA) AUTO NEGATIVE (NEGATIVE); KETONE, URINE AUTO NEGATIVE (NEGATIVE); LEUKOCYTE ESTERASE, URINE AUTO NEGATIVE (NEGATIVE); MUCUS, URINE SMALL (NEGATIVE); NITRITE, URINE AUTO NEGATIVE (NEGATIVE); PROTEIN, URINE AUTO NEGATIVE (NEGATIVE); RBC, URINE AUTO 0 /HPF (0-3); SPECIFIC GRAVITY URINE AUTO 1.019 (1.002-1.035); SQUAMOUS EPITHELIAL CELL UR AU 1 /HPF (0-6); UROBILINOGEN, URINE AUTO 0.2 mg/dL (0.0-2.0); WBC, URINE AUTO 0 /HPF (0-3)
[2022-12-09 21:09] LABS: ANA (HEP2) Negative (.)
== END ==
LOC: M SFHCADAM 10:17
PROVIDERS: ATTEND Physician Assistant
DX: R21 Rash and other nonspecific skin eruption (principal)

== ENCOUNTER → 2023-03-22 | Outpatient (CLI) | payer MEDICARE, OTHER ==
[2023-03-22 14:44] LABS: HEMOGLOBIN 12.8 g/dl (12.0-15.5); MEAN CORPUSCULAR HEMOGLOBIN 29.7 pg (27.0-33.0); MEAN CORPUSCULAR VOLUME 92.8 fl (80.0-96.0); PLATELET COUNT, AUTOMATED 306 10^3/uL (150-450); RED BLOOD COUNT 4.31 10^6/uL (4.00-5.40); WHITE BLOOD COUNT 7.3 10^3/uL (4.0-10.0)
[2023-03-22 15:29] LABS: HEMOGLOBIN A1c 5.9 % (4.0-6.0)
[2023-03-22 15:36] LABS: ALBUMIN 3.6 G/DL (3.2-5.2); ALKALINE PHOSPHATASE 67 U/L (46-116); ALT/SGPT 17 U/L (7.0-40); AST/SGOT 20 U/L (<34); BILIRUBIN,TOTAL 0.4 MG/DL (0.3-1.2); BLOOD UREA NITROGEN 20 MG/DL (9-23); CALCIUM LEVEL 9.5 MG/DL (8.3-10.6); CARBON DIOXIDE LEVEL 28 MMOL/L (20-31); CHLORIDE LEVEL 105 MMOL/L (98-107); CHOLESTEROL LEVEL 158 MG/DL (<200); CREATININE FOR GFR 0.96 MG/DL (0.55-1.30); GLOMERULAR FILTRATION RATE > 60.0 (>39); GLUCOSE, FASTING 119 MG/DL (74-106); HDL CHOLESTEROL 50.9 MG/DL (>40); LDL CHOLESTEROL 63.1 MG/DL (<100); NON-HDL-C 107.1 MG/DL; POTASSIUM SERUM 4.3 MMOL/L (3.5-5.1); SODIUM LEVEL 142 MMOL/L (136-145); TOTAL PROTEIN 6.5 G/DL (5.7-8.2); TRIGLYCERIDES LEVEL 220 MG/DL (<150)
[2023-03-22 15:41] LABS: CREATININE, URINE 152.7 MG/DL
[2023-03-22 15:42] LABS: MAU/CREAT RATIO 3.2 MCG/MG (0.0-30.0)
== END ==
LOC: M PLALAB 09:00
PROVIDERS: ATTEND Family Medicine
DX: E13.9 Other specified diabetes mellitus without complications (principal); I73.00 Raynaud's syndrome without gangrene; E78.2 Mixed hyperlipidemia

== ENCOUNTER → 2023-06-27 | Outpatient (CLI) | payer MEDICARE, OTHER ==
[~2023-06-27] MED LIST changes: +MECL-209 PO; -MECL1TAB31 PO
[2023-06-27 11:48] LABS: CALCIUM LEVEL 9.4 MG/DL (8.3-10.6); CREATININE FOR GFR 1.01 MG/DL (0.55-1.30); GLOMERULAR FILTRATION RATE 57.7 (>39); POTASSIUM SERUM 5.1 MMOL/L (3.5-5.1)
[2023-06-27 11:50] LABS: HEMOGLOBIN A1c 5.6 % (4.0-6.0)
== END ==
LOC: M PLALAB 08:46
PROVIDERS: ATTEND Family Medicine
DX: E13.9 Other specified diabetes mellitus without complications (principal)

== ENCOUNTER → 2023-12-21 | Outpatient (CLI) | payer MEDICARE, OTHER ==
[2023-12-21 13:01] LABS: HEMATOCRIT 38.8 % (36.0-47.0); HEMOGLOBIN 12.6 g/dl (12.0-15.5); MEAN CORPUSCULAR HEMOGLOBIN 30.6 pg (27.0-33.0); MEAN CORPUSCULAR HGB CONC 32.5 g/dl (32.0-36.5); MEAN CORPUSCULAR VOLUME 94.2 fl (80.0-96.0); PLATELET COUNT, AUTOMATED 359 10^3/uL (150-450); RED BLOOD COUNT 4.12 10^6/uL (4.00-5.40); WHITE BLOOD COUNT 11.6 10^3/uL (4.0-10.0)
[2023-12-21 13:03] LABS: ALBUMIN 3.5 G/DL (3.2-5.2); ALKALINE PHOSPHATASE 78 U/L (46-116); ALT/SGPT 24 U/L (7.0-40); AST/SGOT 20 U/L (<34); BILIRUBIN,TOTAL 0.2 MG/DL (0.3-1.2); BLOOD UREA NITROGEN 23 MG/DL (9-23); CALCIUM LEVEL 9.6 MG/DL (8.3-10.6); CARBON DIOXIDE LEVEL 30 MMOL/L (20-31); CHLORIDE LEVEL 105 MMOL/L (98-107); CREATININE FOR GFR 0.94 MG/DL (0.55-1.30); GLOMERULAR FILTRATION RATE > 60.0 (>39); GLUCOSE, FASTING 75 MG/DL (74-106); POTASSIUM SERUM 4.5 MMOL/L (3.5-5.1); SODIUM LEVEL 139 MMOL/L (136-145); TOTAL PROTEIN 6.4 G/DL (5.7-8.2)
[2023-12-21 13:04] LABS: THYROID STIMULATING HORMONE 0.941 uIU/ML (0.55-4.78)
[2023-12-21 13:05] LABS: FREE T4 1.04 NG/DL (0.89-1.76)
[2023-12-21 13:15] LABS: HEMOGLOBIN A1c 5.8 % (4.0-6.0)
== END ==
LOC: M PLALAB 10:12
PROVIDERS: ATTEND Family Medicine
DX: E13.9 Other specified diabetes mellitus without complications (principal)

== ENCOUNTER 2024-03-13 04:53 | Emergency (ER) | payer MEDICARE, OTHER ==
[~2024-03-13] VITALS: Ht 162.6 cm; Wt 77.2 kg
[~2024-03-13 04:53] MED LIST changes: -ALLO100T; +ALLO100T PO; -COLC0.6T47; +COLC0.6T47 PO
[2024-03-13 04:55] VITALS: TEMP 97.5
[2024-03-13] MEDS: NS 500 ML IV ONE (06:45)
[2024-03-13 07:01] LABS: BASO # 0.1 10^3/uL (0.0-0.2); BASO % 0.6 % (0.0-1.0); EOS # 0.2 10^3/uL (0.0-0.5); EOS % 1.8 % (0.0-3.0); HEMATOCRIT 42.1 % (36.0-47.0); LYMPH # 3.1 10^3/uL (1.5-5.0); MEAN CORPUSCULAR HEMOGLOBIN 30.9 pg (27.0-33.0); MEAN CORPUSCULAR HGB CONC 33.3 g/dl (32.0-36.5); MEAN CORPUSCULAR VOLUME 92.9 fl (80.0-96.0); MONO # 0.9 10^3/uL (0.0-0.8); MONO % 7.7 % (2.0-8.0); NEUTROPHILS # 7.7 10^3/uL (1.5-8.5); NEUTROPHILS % 63.7 % (36.0-66.0); PLATELET COUNT, AUTOMATED 349 10^3/uL (150-450); RED BLOOD COUNT 4.53 10^6/uL (4.00-5.40); WHITE BLOOD COUNT 12.1 10^3/uL (4.0-10.0)
[2024-03-13 07:11] VITALS: BP 183/74
[2024-03-13 07:20] LABS: BILIRUBIN,DIRECT 0.1 MG/DL (<0.4); BILIRUBIN,TOTAL 0.4 MG/DL (0.3-1.2); CALCIUM LEVEL 10.1 MG/DL (8.3-10.6); CREATININE FOR GFR 1.02 MG/DL (0.55-1.30); GLOMERULAR FILTRATION RATE 56.9 (>39)
[2024-03-13] MEDS: MORPHINE 2 MG/ML 1ML VIAL IV ONE (09:20)
[2024-03-13] MEDS ORDERED: VITA200010 PO (10:03)
[2024-03-13] MEDS ORDERED: VITA200T6 PO (10:03)
[2024-03-13] MEDS ORDERED: CIPR-249 PO (10:06)
[2024-03-13] MEDS ORDERED: METR-265 PO (10:07)
[2024-03-13] MEDS ORDERED: ONDA-282 PO (10:07)
[2024-03-13] MEDS ORDERED: PROB250C PO (10:11)
[2024-03-13] MEDS ORDERED: CALC600T60 PO (10:11)
[2024-03-13] MEDS ORDERED: ACET-1349 PO (10:11)
[2024-03-13] MEDS ORDERED: SEMA2PEN SQ (10:13)
[2024-03-13] MEDS ORDERED: HOME MED LIST COMPLETE! XX SCH (10:15)
[2024-03-13 10:53] VITALS: O2SAT 99
[2024-03-13] MEDS: CIPROFLOXACIN 500MG TABLET PO ONE (10:53)
[2024-03-13] MEDS: metroNIDAZOLE (FLAGYL) 500MG TABLET PO ONE (10:53)
== END 2024-03-13 11:00 | disposition home or self-care (01) ==
LOC: M ED 04:53
DX: R10.9 Unspecified abdominal pain (principal); K62.5 Hemorrhage of anus and rectum; E11.9 Type 2 diabetes mellitus without complications; I10 Essential (primary) hypertension; E78.00 Pure hypercholesterolemia, unspecified; Z87.891 Personal history of nicotine dependence; Z91.041 Radiographic dye allergy status; Z88.5 Allergy status to narcotic agent; Z88.8 Allergy status to other drugs, medicaments and biological substances

== ENCOUNTER → 2024-03-29 | Outpatient (CLI) | payer MEDICARE, OTHER ==
[~2024-03-29] MED LIST changes: +ACET-1349 PO; +CALC600T60 PO; +CIPR-249 PO; +METR-265 PO; +ONDA-282 PO; +PROB250C PO; +SEMA2PEN SQ; +VITA200010 PO; +VITA200T6 PO
== END ==
LOC: M WHC 08:47
PROVIDERS: ATTEND Family Medicine
DX: Z12.31 Encounter for screening mammogram for malignant neoplasm of breast (principal); Z13.820 Encounter for screening for osteoporosis; Z78.0 Asymptomatic menopausal state

== ENCOUNTER → 2024-06-18 | Outpatient (CLI) | payer MEDICARE, OTHER ==
[2024-06-18 13:26] LABS: URIC ACID 6.2 MG/DL (3.1-7.8)
[2024-06-18 13:30] LABS: ALBUMIN 3.6 G/DL (3.2-5.2); BILIRUBIN,TOTAL 0.7 MG/DL (0.3-1.2); CALCIUM LEVEL 10.1 MG/DL (8.3-10.6); CHOLESTEROL RISK RATIO 2.6 (<5); CREATININE FOR GFR 1.01 MG/DL (0.55-1.30); GLOMERULAR FILTRATION RATE 57.5 (>39); HDL CHOLESTEROL 56.5 MG/DL (>40); LDL CHOLESTEROL 57.5 MG/DL (<100); NON-HDL-C 90.5 MG/DL; POTASSIUM SERUM 4.6 MMOL/L (3.5-5.1); TOTAL PROTEIN 6.5 G/DL (5.7-8.2)
[2024-06-18 13:36] LABS: BASO # 0.1 10^3/uL (0.0-0.2); EOS # 0.4 10^3/uL (0.0-0.5); EOS % 6.2 % (0.0-3.0); HEMATOCRIT 39.6 % (36.0-47.0); HEMOGLOBIN 12.9 g/dl (12.0-15.5); LYMPH # 1.4 10^3/uL (1.5-5.0); LYMPH % 22.7 % (24.0-44.0); MEAN CORPUSCULAR HEMOGLOBIN 30.6 pg (27.0-33.0); MEAN CORPUSCULAR HGB CONC 32.6 g/dl (32.0-36.5); MEAN CORPUSCULAR VOLUME 94.1 fl (80.0-96.0); MONO # 0.6 10^3/uL (0.0-0.8); MONO % 9.7 % (2.0-8.0); NEUTROPHILS # 3.7 10^3/uL (1.5-8.5); NEUTROPHILS % 60.2 % (36.0-66.0); PLATELET COUNT, AUTOMATED 314 10^3/uL (150-450); RED BLOOD COUNT 4.21 10^6/uL (4.00-5.40); WHITE BLOOD COUNT 6.1 10^3/uL (4.0-10.0)
[2024-06-18 13:42] LABS: HEMOGLOBIN A1c 5.5 % (4.0-6.0)
[2024-06-18 13:55] LABS: CREATININE, URINE 103.9 MG/DL; MAU/CREAT RATIO 3.8 MCG/MG (0.0-30.0)
== END ==
LOC: M PLALAB 10:04
PROVIDERS: ATTEND Family Medicine
DX: I10 Essential (primary) hypertension (principal)

== ENCOUNTER → 2024-11-19 | Outpatient (CLI) | payer MEDICARE, OTHER ==
[~2024-11-19] MED LIST changes: +OMEP-611 PO; -OMEP20TA2 PO; +PROHANCE 279.3MG/ML 15ML VIAL ONE; +SENN-193 PO
== END ==
LOC: M PLAIMG 12:19
PROVIDERS: ATTEND Internal Medicine Gastroenterology
DX: K57.20 Diverticulitis of large intestine with perforation and abscess without bleeding (principal)
CPT/HCPCS: 72197; A9576

== ENCOUNTER → 2024-12-30 | Outpatient (CLI) | payer MEDICARE, OTHER ==
[~2024-12-30] MED LIST changes: -PROHANCE 279.3MG/ML 15ML VIAL ONE
[2024-12-30 11:38] LABS: CALCIUM LEVEL 9.9 MG/DL (8.3-10.6); CREATININE FOR GFR 0.99 MG/DL (0.55-1.30); GLOMERULAR FILTRATION RATE 60.6 (>39); POTASSIUM SERUM 4.9 MMOL/L (3.5-5.1)
[2024-12-30 12:46] LABS: HEMOGLOBIN A1c 5.4 % (4.0-6.0)
== END ==
LOC: M PLALAB 09:23
PROVIDERS: ATTEND Family Medicine
DX: I10 Essential (primary) hypertension (principal)

== ENCOUNTER → 2025-03-31 | Outpatient (CLI) | payer MEDICARE, OTHER ==
[~2025-03-31] MED LIST changes: +RAME8TAB2 PO
== END ==
LOC: M WHC 08:06
PROVIDERS: ATTEND Family Medicine
DX: Z12.31 Encounter for screening mammogram for malignant neoplasm of breast (principal); R92.313 Mammographic fatty tissue density, bilateral breasts

== ENCOUNTER → 2025-07-03 | Outpatient (CLI) | payer MEDICARE, OTHER ==
[~2025-07-03] MED LIST changes: -COLC0.6T47 PO; +COLC0.6T53 PO
[2025-07-03 14:30] LABS: PLATELET COUNT, AUTOMATED 347 10^3/uL (150-450)
[2025-07-03 14:33] LABS: CHOLESTEROL LEVEL 136.0 MG/DL (<200); CHOLESTEROL RISK RATIO 2.32 (<5); LDL CHOLESTEROL 53.4 MG/DL (<100); NON-HDL-C 77.6 MG/DL; TRIGLYCERIDES LEVEL 121.0 MG/DL (<150)
[2025-07-03 14:35] LABS: FREE T4 1.05 NG/DL (0.89-1.76)
[2025-07-03 14:56] LABS: MALB URINE SIEMENS < 3.0 MG/L
[2025-07-03 14:57] LABS: CREATININE, URINE 86.1 MG/DL
[2025-07-03 15:37] LABS: ESTIMATED AVERAGE GLUCOSE 117.0 MG/DL (60-110)
== END ==
LOC: M PLALAB 09:02
PROVIDERS: ATTEND Family Medicine
DX: I73.00 Raynaud's syndrome without gangrene (principal); E07.9 Disorder of thyroid, unspecified; E78.00 Pure hypercholesterolemia, unspecified

== ENCOUNTER → 2025-07-04 | Outpatient (REF) | payer MEDICARE, OTHER ==
[2025-07-04 14:11] LABS: ALT/SGPT 19.0 U/L (7.0-40); AST/SGOT 24.0 U/L (<34); CALCIUM LEVEL 9.6 MG/DL (8.3-10.6); CARBON DIOXIDE LEVEL 32.0 MMOL/L (20-31); CHLORIDE LEVEL 104.0 MMOL/L (98-107); CREATININE FOR GFR 0.97 MG/DL (0.55-1.30); GLOMERULAR FILTRATION RATE 62.1 (>39); POTASSIUM SERUM 5.0 MMOL/L (3.5-5.1); SODIUM LEVEL 144.0 MMOL/L (136-145)
== END ==
LOC: M SFHCADAM 09:48
PROVIDERS: ATTEND Family Medicine
DX: E13.9 Other specified diabetes mellitus without complications (principal)

== ENCOUNTER → 2025-07-04 | Outpatient (CLI) | payer MEDICARE, OTHER | LOC: M ADAMS 10:26 | PROVIDERS: ATTEND Family Medicine | DX: M17.0 Bilateral primary osteoarthritis of knee (principal); M25.561 Pain in right knee; M25.562 Pain in left knee ==